=== PATIENT | male | born 1965 | race Caucasian/White ===

== ENCOUNTER → 2016-10-26 | Outpatient (CLI) | payer OTHER ==
[~2016-10-26] MED LIST: ATOR10TA64 PO; FEXO180T94 PO; FISH1CAP2 PO; GABA-336 PO; GEMF600T3 PO; METF-200 PO; PRAM0.5T12 PO; TRAM50TA4 PO; VITA-321 PO
== END ==
LOC: SS 20:00
PROVIDERS: ATTEND Family Medicine
DX: Z53.8 Procedure and treatment not carried out for other reasons (principal)